=== PATIENT | male | born 1935 | race Caucasian/White ===

== ENCOUNTER → 2020-08-25 16:49 | Outpatient (CLI) | payer MEDICARE, BC ==
[2020-08-25 17:46] LABS: EOSINOPHILS 2.4 % (0-7); HEMATOCRIT 35.2 % (42.0-54.0); HEMOGLOBIN 11.6 g/dL (13.5-17.5); IMMATURE GRANULOCYTES 0.4 % (0-5); LYMPHOCYTES 33.7 % (15-50); MCH 29.6 pg (26.0-34.0); MCV 89.8 fL (80.0-100.0); MEAN PLATELET VOLUME 10.2 fL (7.4-10.4); MONOCYTES 11.9 % (2-11); NEUTROPHIL ABS# 2.55 10x3/uL (1.78-5.38); NEUTROPHILS 50.6 % (40-80); RBC 3.92 10x6/uL (4.20-6.10); RDW 13.7 % (11.5-14.5)
[2020-08-25 17:52] LABS: PLATELET COUNT 300 10x3/uL (130-400)
== END | disposition home or self-care (01) ==
LOC: D.LABREF 16:49
PROVIDERS: ATTEND Family Medicine
DX: G93.41 Metabolic encephalopathy (principal); I25.10 Atherosclerotic heart disease of native coronary artery without angina pectoris; F02.80 Dementia in other diseases classified elsewhere, unspecified severity, without behavioral disturbance, psychotic disturbance, mood disturbance, and anxiety; E86.0 Dehydration

== ENCOUNTER → 2020-08-27 16:49 | Outpatient (CLI) | payer MEDICARE, BC ==
[2020-08-27 18:09] LABS: ALBUMIN 3.6 g/dL (3.4-5.0); ANION GAP 16.1 mmol/L (8-16); BILIRUBIN - TOTAL 0.23 mg/dL (0.2-1.3); CALCIUM 9.8 mg/dL (8.5-10.1); CARBON DIOXIDE 24.7 mmol/L (21.0-32.0); CREATININE - SERUM 1.6 mg/dL (0.6-1.3); POTASSIUM - SERUM 3.8 mmol/L (3.5-5.1); PROTEIN - SERUM 6.7 g/dL (6.4-8.2)
== END | disposition home or self-care (01) ==
LOC: D.LABREF 16:49
PROVIDERS: ATTEND Family Medicine
DX: G93.41 Metabolic encephalopathy (principal); I10 Essential (primary) hypertension

== ENCOUNTER → 2020-10-03 16:06 | Outpatient (CLI) | payer MEDICARE, BC ==
[2020-10-03 16:49] LABS: BASOPHILS 0.9 % (0-2); EOSINOPHILS 3.6 % (0-7); HEMATOCRIT 34.5 % (42.0-54.0); IMMATURE GRANULOCYTES 0.2 % (0-5); LYMPHOCYTE ABS# 1.09 10x3/uL (1.32-3.57); LYMPHOCYTES 20.5 % (15-50); MCH 29.4 pg (26.0-34.0); MCHC 31.9 g/dL (31.0-37.0); MCV 92.2 fL (80.0-100.0); MEAN PLATELET VOLUME 10.9 fL (7.4-10.4); MONOCYTES 9.8 % (2-11); NEUTROPHIL ABS# 3.46 10x3/uL (1.78-5.38); PLATELET COUNT 284 10x3/uL (130-400); RBC 3.74 10x6/uL (4.20-6.10); RDW 14.3 % (11.5-14.5); WBC 5.3 10x3/uL (4.8-10.8)
[2020-10-03 17:05] LABS: ANION GAP 13.9 mmol/L (8-16); BILIRUBIN - TOTAL 0.17 mg/dL (0.2-1.3); CALCIUM 8.7 mg/dL (8.5-10.1); CARBON DIOXIDE 25.1 mmol/L (21.0-32.0); CREATININE - SERUM 1.6 mg/dL (0.6-1.3); PROTEIN - SERUM 5.8 g/dL (6.4-8.2)
[2020-10-03 17:26] LABS: BILIRUBIN NEGATIVE (NEGATIVE); KETONE NEGATIVE (NEGATIVE); NITRITE NEGATIVE (NEGATIVE); UROBILINOGEN NORMAL mg/dL (< 2)
[2020-10-03 17:30] LABS: BACTERIA MODERATE HPF (NONE SEEN)
== END | disposition home or self-care (01) ==
LOC: D.LABREF 16:06
PROVIDERS: ATTEND Family Medicine
DX: R41.82 Altered mental status, unspecified (principal)

== ENCOUNTER → 2020-10-19 12:58 | Outpatient (CLI) | payer MEDICARE, BC ==
[2020-10-19 14:07] LABS: BILIRUBIN NEGATIVE (NEGATIVE); KETONE SMALL mg/dL (NEGATIVE); NITRITE NEGATIVE (NEGATIVE); UROBILINOGEN NORMAL mg/dL (< 2)
== END | disposition home or self-care (01) ==
LOC: D.LABREF 12:58
PROVIDERS: ATTEND Family Medicine
DX: N39.0 Urinary tract infection, site not specified (principal)

== ENCOUNTER → 2020-10-21 12:04 | Outpatient (CLI) | payer MEDICARE, BC ==
[2020-10-21 15:31] LABS: CALCIUM 9.2 mg/dL (8.5-10.1); CARBON DIOXIDE 25.5 mmol/L (21.0-32.0); CREATININE - SERUM 1.1 mg/dL (0.6-1.3); POTASSIUM - SERUM 4.5 mmol/L (3.5-5.1)
== END | disposition home or self-care (01) ==
LOC: D.LABREF 12:04
PROVIDERS: ATTEND Family Medicine
DX: R94.4 Abnormal results of kidney function studies (principal)

== ENCOUNTER → 2020-10-27 16:47 | Outpatient (CLI) | payer MEDICARE, BC | END | disposition home or self-care (01) | LOC: D.LABREF 16:47 | PROVIDERS: ATTEND Family Medicine | DX: F06.30 Mood disorder due to known physiological condition, unspecified (principal); F02.80 Dementia in other diseases classified elsewhere, unspecified severity, without behavioral disturbance, psychotic disturbance, mood disturbance, and anxiety ==

== ENCOUNTER → 2020-11-13 20:23 | Outpatient (CLI) | payer MEDICARE, BC ==
[2020-11-13 20:39] LABS: BASOPHILS 1.3 % (0-2); EOSINOPHILS 2.2 % (0-7); HEMATOCRIT 37.8 % (42.0-54.0); HEMOGLOBIN 12.2 g/dL (13.5-17.5); LYMPHOCYTES 19.1 % (15-50); MCHC 32.1 g/dL (31.0-37.0); MCV 90.2 fL (80.0-100.0); MEAN PLATELET VOLUME 9.3 fL (7.4-10.4); NEUTROPHILS 69.4 % (40-80); PLATELET COUNT 243 10x3/uL (130-400); RDW 14.8 % (11.5-14.5)
[2020-11-13 20:55] LABS: ALBUMIN 3.3 g/dL (3.4-5.0); ANION GAP 18.3 mmol/L (8-16); BILIRUBIN - TOTAL 0.24 mg/dL (0.2-1.3); CALCIUM 8.9 mg/dL (8.5-10.1); CARBON DIOXIDE 23.2 mmol/L (21.0-32.0); CREATININE - SERUM 1.7 mg/dL (0.6-1.3); POTASSIUM - SERUM 5.5 mmol/L (3.5-5.1); PROTEIN - SERUM 6.2 g/dL (6.4-8.2); VALPROIC ACID (DEPAKOTE) 3.2 ug/mL (50.0-100.0)
== END | disposition home or self-care (01) ==
LOC: D.LABREF 20:23
PROVIDERS: ATTEND Family Medicine
DX: Z79.899 Other long term (current) drug therapy (principal); R53.83 Other fatigue

== ENCOUNTER → 2020-11-15 19:57 | Outpatient (CLI) | payer MEDICARE, BC ==
[2020-11-15 20:27] LABS: BASOPHILS 0.9 % (0-2); EOSINOPHILS 4.5 % (0-7); HEMATOCRIT 37.1 % (42.0-54.0); HEMOGLOBIN 12.2 g/dL (13.5-17.5); LYMPHOCYTES 21.5 % (15-50); MCH 29.1 pg (26.0-34.0); MCHC 32.7 g/dL (31.0-37.0); MCV 88.9 fL (80.0-100.0); MEAN PLATELET VOLUME 9.8 fL (7.4-10.4); MONOCYTES 8.8 % (2-11); NEUTROPHILS 64.3 % (40-80); PLATELET COUNT 207 10x3/uL (130-400); RBC 4.18 10x6/uL (4.20-6.10); RDW 14.5 % (11.5-14.5)
[2020-11-15 20:29] LABS: WBC 4.4 10x3/uL (4.8-10.8)
[2020-11-15 20:42] LABS: ALBUMIN 3.2 g/dL (3.4-5.0); ANION GAP 17.5 mmol/L (8-16); BILIRUBIN - TOTAL 0.37 mg/dL (0.2-1.3); CARBON DIOXIDE 22.1 mmol/L (21.0-32.0); CREATININE - SERUM 1.1 mg/dL (0.6-1.3); POTASSIUM - SERUM 5.6 mmol/L (3.5-5.1); PROTEIN - SERUM 6.3 g/dL (6.4-8.2)
== END | disposition home or self-care (01) ==
LOC: D.LABREF 19:57
PROVIDERS: ATTEND Family Medicine
DX: E86.0 Dehydration (principal)